=== PATIENT | male | born 1975 | race Two or more races ===

== ENCOUNTER 2017-08-15 02:59 | Emergency (ER) | payer OTHER ==
[~2017-08-15] VITALS: Ht 170.2 cm; Wt 79.8 kg
[2017-08-15] MEDS ORDERED: CLARITIN10 M1 (03:08)
== END 2017-08-15 10:26 | disposition home or self-care (01) ==
LOC: ER 02:59
DX: I82.811 Embolism and thrombosis of superficial veins of right lower extremity (principal); I83.811 Varicose veins of right lower extremity with pain; I87.2 Venous insufficiency (chronic) (peripheral); M79.604 Pain in right leg; M79.661 Pain in right lower leg